=== PATIENT | female | born 1965 | race Caucasian/White ===

== ENCOUNTER 2018-03-02 16:19 | Inpatient (IN) | payer MEDICARE, OTHER ==
[~2018-03-02] VITALS: Ht 149.8 cm; Wt 33.6 kg
[2018-03-02 16:29] VITALS: BP 95/71
[2018-03-02 17:04] LABS: BILIRUBIN NEGATIVE (NEGATIVE); BLOOD NEGATIVE (NEGATIVE); CLARITY CLEAR (CLEAR); COLOR YELLOW (YELLOW); GLUCOSE NEGATIVE (NEGATIVE); KETONE NEGATIVE (NEGATIVE); LEUKO ESTERASE 1+ (NEGATIVE); NITRITE NEGATIVE (NEGATIVE); UROBILINOGEN 0.2 E.U./dl (0.2-1.0)
[2018-03-02 17:09] LABS: BASO % 0.2 % (0.0-1.0); EOS % 0.3 % (1.0-4.0); HEMATOCRIT 42.2 % (37.0-47.0); HEMOGLOBIN 13.5 g/dl (12.0-16.0); LYMPH # 1.9 10*3/uL (1.3-4.4); LYMPH % 17.2 % (27.0-41.0); MEAN CELL VOLUME 94.2 fl (81.0-99.0); MEAN CORPUSCULAR HGB 30.1 pg (27.0-31.0); MEAN PLATELET VOLUME 10.6 fl (9.6-12.3); MONO # 0.7 10*3/uL (0.1-1.0); MONO % 6.2 % (3.0-9.0); NEUT # 8.5 10*3/uL (2.3-7.9); NEUT % 75.8 % (47.0-73.0); PLATELET COUNT AUTOMATED 220 10*3/uL (130-400); RED BLOOD COUNT 4.48 10*6/uL (4.10-5.10); RED CELL DISTRI WIDTH 14.8 % (0-14.5); WHITE BLOOD COUNT 11.3 10*3/uL (4.8-10.8)
[2018-03-02 17:12] LABS: URINE AMPHETAMINES < 1000 (1000ng/ml); URINE BARBITURATES < 200 (200ng/ml); URINE BENZODIAZEPINES < 200 (200ng/ml); URINE CANNABINOIDS (THC) < 50 (50ng/ml); URINE COCAINE < 300 (300ng/ml); URINE METHADONE < 300 (300ng/ml); URINE OPIATES < 300 (300ng/ml)
[2018-03-02 17:16] LABS: URINE PHENCYCLIDINE < 25 (25ng/ml)
[2018-03-02 17:20] LABS: BACTERIA TRACE; EPITHELIAL CELLS TNTC; RBC 0-2 rbc/hpf (0-2)
[2018-03-02 17:28] LABS: ACETAMINOPHEN (TYLENOL) < 2.0 ug/ml (10-30); ALBUMIN 3.5 gm/dl (3.1-4.5); ALKALINE PHOSPHATASE 94 U/L (45-117); BUN 6 mg/dl (7-24); CHLORIDE 101 mmol/L (98-107); CREATININE 0.57 mg/dL (0.55-1.02); ETHYL ALCOHOL < 3.0 mg/dl (<3); POTASSIUM 4.1 mmol/L (3.5-5.1); SGOT/AST 20 IU/L (3-35); SGPT/ALT 22 U/L (12-78); SODIUM 139 mmol/L (136-145); TOTAL PROTEIN 7.4 gm/dL (6.4-8.2)
[2018-03-02 17:30] VITALS: BP 100/75
[2018-03-02 18:30] VITALS: BP 96/74
[2018-03-02] MEDS ORDERED: LYRICA150 M1 PO (18:44)
[2018-03-02] MEDS ORDERED: VISTARIL50 MG PO (18:45)
[2018-03-02] MEDS ORDERED: PROAIR HFA8.5 GM INH (18:46)
[2018-03-02] MEDS ORDERED: ZOLOFT100 MG PO (18:46)
[2018-03-02] MEDS ORDERED: DUONEB 3 MG/3 ML3 M1 INH (18:47)
[2018-03-02] MEDS ORDERED: OMEPRAZOLE40 MG PO (18:47)
[2018-03-02] MEDS ORDERED: DELTASONE2.5 MG PO (18:48)
[2018-03-02] MEDS ORDERED: DEPAKOTE ER500 MG PO (18:50)
[2018-03-02] MEDS ORDERED: BACLOFEN20 M1 PO (18:52)
[2018-03-02 20:00] VITALS: BP 139/82
[2018-03-03 00:19] VITALS: BP 148/87
[2018-03-03 08:00] VITALS: BP 186/90
[2018-03-03 12:00] VITALS: BP 180/90
== END 2018-03-03 17:08 | disposition short-term general hospital (02) | DRG 897 ==
LOC: ED 16:19 → 4E 17:48 → EDHOLD 17:48 → 4E 18:23
PROVIDERS: Nurse Practitioner Family
DX: F11.23 Opioid dependence with withdrawal (principal); Q25.3 Supravalvular aortic stenosis; C50.919 Malignant neoplasm of unspecified site of unspecified female breast; F33.9 Major depressive disorder, recurrent, unspecified; K50.919 Crohn's disease, unspecified, with unspecified complications; D72.829 Elevated white blood cell count, unspecified; N39.0 Urinary tract infection, site not specified; F41.1 Generalized anxiety disorder; E78.5 Hyperlipidemia, unspecified; E16.2 Hypoglycemia, unspecified; L93.0 Discoid lupus erythematosus; K57.30 Diverticulosis of large intestine without perforation or abscess without bleeding; K44.9 Diaphragmatic hernia without obstruction or gangrene; R91.1 Solitary pulmonary nodule; I10 Essential (primary) hypertension; J44.9 Chronic obstructive pulmonary disease, unspecified; G40.909 Epilepsy, unspecified, not intractable, without status epilepticus; Z71.6 Tobacco abuse counseling; Z72.0 Tobacco use; Z88.8 Allergy status to other drugs, medicaments and biological substances; Z90.49 Acquired absence of other specified parts of digestive tract; Z98.1 Arthrodesis status; Z82.5 Family history of asthma and other chronic lower respiratory diseases; Z79.52 Long term (current) use of systemic steroids; Z79.899 Other long term (current) drug therapy

== ENCOUNTER 2018-03-29 23:08 | Inpatient (IN) | payer MEDICARE, OTHER ==
[~2018-03-29] VITALS: Ht 149.8 cm; Wt 32.7 kg
--- NOTE | ~2018-03-29 | PR ---
[place], [place] PROGRESS NOTE NAME: MEHRAN FERNANDEZ UNIT #: [id number] ROOM: 523 DOCTOR: MEET COHN MD BIRTHDATE: [birth year] DOS: 04/02/2018 SUBJECTIVE: The patient has been still noted sleepiness and drowsiness. Not able to give any history. Has not noted any respiratory distress. Continue the detox protocol for the dependence on the illicit drugs as heroin. He has not been noted any hemodynamic instability. REVIEW OF SYSTEMS: Cannot be completed. OBJECTIVE: VITAL SIGNS: Normal temperature, respiratory rate 16-18, heart rate 58-90, blood pressure 110/64-112/53. The intake of patient 2.690 liter, output 1500 mL. HEENT: Limited exam was noted as normal for the patient at this time. Head was atraumatic. Eyes nonicterus. CARDIOVASCULAR: S1, S2 audible. LUNGS: Noted moderate reduction in breath sounds bilaterally. ABDOMEN: Flat, soft, nontender. Bowel sounds present. EXTREMITIES: Without any acute edema. MUSCULOSKELETAL: Without any deformity. SKIN: No lesions or rashes. GENITOURINARY: Still noted with drowsiness. The patient is sleeping, but there were no focal deficits. LABORATORY DATA: The patient's CBC today was noted as normal. BMP this morning noted as normal BUN and creatinine. Sodium 146, mildly elevated potassium, mildly decreased 3.4. The prealbumin level noted at 14. IMPRESSION: 1. The patient with protein calorie malnutrition. 2. The patient with heroin dependence as well. Currently getting detoxification. 3. Mild electrolyte imbalance. 4. Nodule for patient in the left upper lobe is suspicious for malignancy. 5. History of breast cancer, still not sure, further inquiry with family members, but the patient had been provided history about that. Other supportive therapy, plan and management, continue usual treatment, other care, plan of therapies. [place], [place] PROGRESS NOTE NAME: MEHRAN FERNANDEZ UNIT #: [id number] ROOM: 523 DOCTOR: MEET COHN MD BIRTHDATE: [birth year] MEET SHIELDS MD CM:PNTRANS [id number] MEET JUAREZ MD 04/05/18 0927 interface
--- NOTE | ~2018-03-29 | CON ---
[place], [place] REPORT OF CONSULTATION NAME: MEHRAN FERNANDEZ UNIT #: [id number] ROOM: [facility] DOCTOR: MU WEST MD BIRTHDATE: [birth year] DOS: 03/31/2018 REASON FOR CONSULTATION: History of aortic narrowing, malignant hypertension. HISTORY OF PRESENT ILLNESS: The patient is a 52-year-old woman who has a long history of narcotic abuse. She presented to the Emergency Room with nausea and abdominal pain for detoxification from opiates through the [facility]. She states that she has been snorting heroin for over a year and a half. She had been previously followed with pain management for 15 years and was on Opana. She told her admitting physicians that when the pain clinic stopped providing her with the Opana, she began to buy heroin off the street. The patient was hospitalized at [facility], 03/02/2018, for inpatient detoxification through the [facility]. She developed severe abdominal pain and was sent to [facility] after a CAT scan of the abdomen indicated severe narrowing of the abdominal aorta. At the [facility], it was felt that her abdominal pain was due to diverticulitis. A CT angiogram of the abdominal aorta and subsequent examinations by Vascular Surgery indicated that the patient did have normal flow to the lower extremities and that no indication for revascularization was present. In addition, the CT angiogram showed that her superior mesenteric artery was patent. Her inferior mesenteric artery had atherosclerosis, but was patent. The renal arteries had mild atherosclerosis, but were patent and there was no evidence for mesenteric ischemia or renovascular hypertension. The patient is currently lying in her bed in a position. She is moaning, moving constantly, and will not answer questions. Much of the history is obtained from old records. PAST MEDICAL HISTORY: Includes: 1. Bipolar disorder. 2. Cigarette abuse with chronic obstructive pulmonary disease. 3. Crohn's disease. 4. Diverticulosis with diverticulitis. 5. Generalized anxiety disorder. 6. Hiatal hernia. 7. History of breast cancer. 8. History of endometriosis. 9. Hyperlipidemia. 10. Hypertension. 11. Lung nodule. 12. Major depressive disorder. 13. Possible stenosis of the aorta. 14. Vascular Surgery evaluation, [facility] in 02/2018 indicated that the patient had no evidence for hemodynamically significant stenosis of the distal abdominal aorta. There was also no evidence for mesenteric ischemia. SURGICAL HISTORY: Includes history of appendectomy, cholecystectomy, breast [place], [place] REPORT OF CONSULTATION NAME: MEHRAN FERNANDEZ UNIT #: [id number] ROOM: [facility] DOCTOR: MU WEST MD BIRTHDATE: [birth year] lumpectomy, neck surgery with cervical fusion and laparoscopic surgery for endometriosis. REVIEW OF SYSTEMS: Impossible at this time as the patient either cannot or will not answer any questions. As noted, she was lying in a position, shivering. MEDICATIONS PRIOR TO ADMISSION: Albuterol 2 puffs q.i.d. DuoNeb 3 mL by nebulizer q.4h., Baclofen 20 mg t.i.d., Depakote ER 500 mg b.i.d., hydroxyzine 50 mg q.6. hours, omeprazole 40 mg daily, prednisone 2.5 mg daily, Lyrica 150 mg b.i.d., and sertraline 100 mg daily. ALLERGIES: The patient lists allergies to nonsteroidal anti-inflammatory drugs, which cause hives, nausea and tongue swelling. SOCIAL HISTORY: The patient does not consume alcohol. She does smoke cigarettes and she does utilize illicit drugs including heroin. PHYSICAL EXAMINATION: GENERAL: The patient is a cachectic-appearing white female who is awake, but does not respond to questions. VITAL SIGNS: Pulse is 100 and regular, blood pressure is 118/81. She weighs 32.6 kg and has a body mass index of 14.6. HEENT: Normocephalic and atraumatic. Extraocular muscles are intact. Sclerae are clear. The oral mucosa is moist. Tongue is midline. NECK: Supple. She has no jugular distention. Carotids are full. RESPIRATORY: Respirations are unlabored. Her chest is clear to auscultation and percussion. CARDIOVASCULAR: Her heart has a regular rhythm with a fourth heart sound, but no third heart sound or murmur. ABDOMEN: Soft and hypoactive. EXTREMITIES: Showed no edema. Peripheral pulses were palpable in the feet and her feet were warm to touch. LABORATORY DATA: Her electrocardiogram showed sinus tachycardia with biatrial enlargement and left ventricular hypertrophy. IMPRESSION: 1. History of long-term and ongoing narcotic abuse. 2. Opiate withdrawal. 3. Systemic inflammatory response syndrome. 4. Tachycardia. 5. Probable severe malnutrition. 6. History of tobacco abuse. 7. Hypertension. 8. History of possible peripheral vascular disease, not confirmed on recent evaluation by Vascular Surgery at [facility]. PLAN: I believe that the patient's hypertension on admission was probably due to drug withdrawal, anxiety, stress, etc. She probably does have a history of [place], [place] REPORT OF CONSULTATION NAME: MEHRAN FERNANDEZ UNIT #: [id number] ROOM: [facility] DOCTOR: MU WEST MD BIRTHDATE: [birth year] long-term hypertension, but this should be managed utilizing normal step care. In her particular situation, management with clonidine may be particularly appropriate since this may help with her withdrawal symptoms as well. As noted above, the patient did have a Vascular Surgery evaluation while she was hospitalized at the [facility] one month ago. This did not show any evidence for significant ischemia of her abdominal viscera or her lower extremities. Risk factor modification is all that is appropriate for her vascular disease at this time. We will see the patient intermittently with her other physicians and be available as needed. I thank the hospitalist physicians for asking our advice regarding her care. MU WEST MD CM:CONSTR:REPORT OF CONSULTATION 1721 03/31/189 interface
--- NOTE | ~2018-03-29 | CON ---
[place], [place] REPORT OF CONSULTATION NAME: MEHRAN FERNANDEZ UNIT #: [id number] ROOM: [facility] DOCTOR: MEET COHN MD BIRTHDATE: [birth year] DOS: 04/01/2018 PULMONARY CONSULTATION, EVALUATION AND MANAGEMENT CONSULTATION REQUESTED BY: Hospitalist services. REASON FOR CONSULTATION: For assessment of the nodule in the left upper lobe. HISTORY OF PRESENT ILLNESS: The history of the patient contained documented mostly is actual review of the medical record by the other physician at this time. The patient has been noted intermittently drowsy and sleepy and not able to give me accurate history. This is a 52-year-old white female patient who was admitted to the hospital under the hospitalist service as a [facility]. The patient has been noted with a narcotic overdose for this patient and abuse in the form of the heroin. The patient stated that she has been snorting the heroin. She has been admitted to the hospital for detoxification. The patient presented to the hospice also reported symptoms of nausea and abdominal pain. The patient has been currently staying at the bed noted with intermittent sleepiness of the patient at the time of the assessment. Further review of systems could not be obtained. REVIEW OF SYSTEMS: Certainly cannot be performed for this patient at this time because of current overall medical status. PAST MEDICAL HISTORY: 1. The patient was reported as history of bipolar disorder. 2. Nicotine dependence. 3. Chronic obstructive pulmonary disease. 4. Crohn's disease. 5. Diverticulosis and diverticulitis. 6. General anxiety disorder. 7. Hiatal hernia. 8. Breast cancer. Again, details unknown. 9. History of endometriosis. 10. Hyperlipidemia. 11. Hypertension. 12. Major depressive disorder. 13. Possible stenosis of aorta was also reported. 14. Peripheral arterial disease for the patient was also reported including for the major vessels for the patient. PAST SURGICAL HISTORY: Reported as: 1. Cholecystectomy. 2. Appendectomy. 3. Cervical fusion. 4. Cholecystectomy. SOCIAL HISTORY: The patient reported , has 1 child, lives were at home. [place], [place] REPORT OF CONSULTATION NAME: MEHRAN FERNANDEZ UNIT #: [id number] ROOM: [facility] DOCTOR: MEET COHN MD BIRTHDATE: [birth year] History of chronic illicit drug use was noted in the form of the heroin. Tobacco use was reported for the patient since age of [age] years old at least half a pack of cigarettes per day, long time. There was no history of alcohol use reported. FAMILY HISTORY: Reported father at 57-year-old with complication of COPD, history about the mom was unknown. HOME MEDICATIONS: Listed use of ProAir HFA inhaler, baclofen, Depakote, Vistaril, DuoNeb, omeprazole, prednisone 2.5 mg, Lyrica, and Zoloft. ALLERGIES: THE PATIENT'S DRUG USE REPORTED ALLERGY TO THE NONSTEROIDAL ANTI-INFLAMMATORY MEDICATION CAUSING ANGIOEDEMA. PHYSICAL EXAMINATION: GENERAL: This is a 52-year-old female who has been currently lying in the bed, appeared to be somewhat sleepy intermittently, but there were no respiratory distress at the present time. VITAL SIGNS: Height was recorded 4 feet 11 inches, weight of 72 pounds with a BMI only 14.7. Vital signs for the patient, which has been noted showed the temperature noted normal, respiratory rate is 16-17, heart rate of 104-123, previous sinus tachycardia, blood pressure 117/77-128/80. HEENT: Examination shows head was atraumatic. Eyes: Nonicterus. NECK: Supple. CARDIOVASCULAR: S1, S2 audible. LUNGS: The patient was noted with [id number] decreased breath sounds bilaterally without any crackles. ABDOMEN: Flat, soft, nontender. EXTREMITIES: Without any acute edema. MUSCULOSKELETAL: Without acute deformities. CENTRAL NERVOUS SYSTEM: Could not be examined for the patient at this time. SKIN: Visible skin. No lesions or rashes. MUSCULOSKELETAL: Noted without any acute deformities. LABORATORY DATA: CBC on 03/29/2018 was noted as normal CBC. Salicylate level noted less than 1.7 on admission on 03/29/2018. On 03/29/2018, CMP of the patient noted normal BUN and creatinine. The urine drug screen for the patient on admission noted positive for benzodiazepines and opiates. The PT/INR for the patient on 03/30/2018 was normal. Ammonia level 17 on 03/31/2018. Arterial blood gas for the patient on 03/31/2018, 2 liters, pH of 7.39, pCO2 of 44, pO2 of 99.2. CT of the head for the patient that was done on 03/31/2018 was noted without any acute intracranial abnormalities. Chest x-ray of the patient 1 view, which was done for the patient 03/29/2018 shows changes of COPD without any acute pulmonary infiltration. The patient had a CTA of the chest that was done yesterday was reviewed, showed changes of centrilobular emphysema in the upper portion of the lung 1.5 x 1.1 cm nodule for the patient noted spiculated in the left ____. The arterial blood gas for this patient was done again yesterday, pH of 7.45, pCO2 of 37, pO2 65 on room air. CBC of this morning remains normal. CMP this morning, normal BUN and creatinine. [place], [place] REPORT OF CONSULTATION NAME: MEHRAN FERNANDEZ UNIT #: [id number] ROOM: [facility] DOCTOR: MEET COHN MD BIRTHDATE: [birth year] IMPRESSION: 1. The patient will be admitted to the hospital with history reported for the breast cancer, lumpectomy reported in the history by records not having further documentation assessment for that. Currently noted with a nodule in the right upper lobe with a history of chronic tobacco use and chronic obstructive pulmonary disease, suspicious highly for a primary lung malignancy, metastatic disease certainly to be excluded. 2. The patient with severe cachexia, most likely related to chronic illicit drug use for the patient with underlying chronic obstructive pulmonary disease and other factors. 3. Chronic nicotine dependence. 4. History of chronic illicit drug use of the patient in the form of the heroin. PLAN OF MANAGEMENT: At this time, the patient to be treated for the detoxification. Upon discharge, she will require PET scan and then biopsy of the left upper lung nodule to consider out malignancy. Further workup of the patient's COPD should be done as an outpatient for the appropriate long-term management. Tobacco cessation will be recommended of this patient. At this time, no meaningful discussion could be done in the patient because of her current ongoing mental status changes of the patient and other issues. Supportive care. Nutrition support for the cachexia. Ordered the prealbumin level of the patient to assess the underlying nutritional status. Usual care, other supportive therapy, plan of management and care plan. Thanks for allowing me to participate in the care of this patient. MEET SHIELDS MD CM:CONSTR:REPORT OF CONSULTATION 1213 04/01/18 1405 interface
--- NOTE | ~2018-03-29 | PR ---
[place], [place] PROGRESS NOTE NAME: MEHRAN FERNANDEZ UNIT #: [id number] ROOM: 523 DOCTOR: CORNELIUS JUAREZ MD,MEET BIRTHDATE: [birth year] DOS: 04/03/2018 PULMONARY PROGRESS NOTE SUBJECTIVE: The patient noted comfortable at this time, resting in bed, noted fully awake and alert. The patient is able to converse, understand the conversation effectively. The patient denied any history of cancer of the breast as a biopsy done of the left breast that was noted benign at [facility] many years ago. She does not know any pulmonary nodules, which are known in the lungs previously as well. She lives in [place], [place] and came in for detoxification for the [facility]. The patient stated that she had been managed for several pain medications including the Opana, Percocet for the chronic pain was described as a part of the body including intravertebral areas. The patient would like to be detoxed to get rid of the narcotic medications. Denies symptoms of chest pain, nausea, vomiting. Denies symptoms of abdominal pain, hematemesis, melena, or hematochezia. Denies symptoms of recurrent fever or chills. General weakness and fatigue was noted. Her appetite was noted as fair. PAST MEDICAL HISTORY, FAMILY HISTORY, SOCIAL AND SURGICAL HISTORY: Reviewed for the patient again and noted unchanged except what is already stated in history of present illness as there was no history of breast cancer. PHYSICAL EXAMINATION: VITAL SIGNS: For the patient, which were recorded this morning showed normal temperature, respiratory rate 16, heart rate 67, blood pressure 127/83-120/88. The pulse oxygen saturation noted at 40% oxygen with the BiPAP and the oxygen supplementation nasal cannula 98% saturation this morning at rest. HEENT: Shows head was atraumatic. Eyes nonicterus. NECK: Supple. CARDIOVASCULAR: S1, S2 audible. LUNGS: Noted [id number] decreased breath sounds. There was no wheezing or crackles. ABDOMEN: Soft, flat, nontender, bowel sounds present. EXTREMITIES: Loss of muscle mass. VISIBLE SKIN: No lesions or rashes. CENTRAL NERVOUS SYSTEM: Noted intact. LABORATORY DATA: The CMP this morning shows glucose 105, BUN 8, creatinine 0.42. Total protein 6.0. Albumin 2.8. CBC, WBC count were normal. All the other CBC was noted as normal. IMPRESSION: 1. The patient who has been currently noted with a drug withdrawal for detoxification, which has been continued with use of the heroin used by the patient for the medical and chronic pain and narcotic medication dependency. 2. Highly suspicious nodule of left upper lung with a strong possibility of primary lung malignancy. 3. Severe chronic protein-calorie malnutrition status as well. 4. History of dependence on the illicit drugs. [place], [place] PROGRESS NOTE NAME: MEHRAN FERNANDEZ UNIT #: [id number] ROOM: 523 DOCTOR: CORNELIUS JUAREZ MD,MEET BIRTHDATE: [birth year] 5. Chronic nicotine use. The patient also noted smoking cigarettes 1 pack a day or more. 6. Moderate protein-calorie malnutrition. PLAN OF MANAGEMENT: The patient will be ordered nutrition supplements as Ensure 1 can 4 times a day. Continuation of the bronchodilator with oxygen supplementation as in progress. Continue detoxification program for the use of heroin dependency. Continuation of other previous therapy, plan of management , care plan, usual treatment, other supportive plan of management. The detailed discussion was done for the patient about 50 minutes more for further assessment, which will be needed to exclude malignancy and further medical management of the left upper lobe, clearly understood by the patient. She was asked to be followed up by trading floor operator in the local area since they live far away, but she likes to come to my office for further assessment if she does make an appointment and followup, which will be difficult because of transportation and travel. I will be more than happy to assist her for that. Continue in the meantime, other supportive therapy, plan of management, care plan, usual treatment. MEET SHIELDS MD CM:PNJOSH [id number] MEET JUAREZ MD 04/03/18 0292 interface
--- NOTE | ~2018-03-29 | PR ---
[place], [place] PROGRESS NOTE NAME: MEHRAN FERNANDEZ WADENA CLINICT #: [id number] UNIT #: [id number] ROOM: [facility] DOCTOR: MU WEST MD BIRTHDATE: [birth year] DOS: 04/01/2018 CARDIOLOGY PROGRESS NOTE SUBJECTIVE: The patient was seen at her bedside in the Intensive Care Unit today on 04/01/2018 for reassessment of aortic vascular disease and hypertension. She is a 52-year-old woman with a history of narcotic abuse who presented to the Emergency Room with nausea and abdominal pain with a request that she be detoxified from opiates through the [facility]. The patient was recently hospitalized at the [facility] in late 02/2018 for inpatient detoxification and severe abdominal pain with nausea and vomiting. A CAT scan of her abdomen suggested near occlusion of her distal abdominal aorta and therefore, she was sent to [facility] for a vascular evaluation. Repeat CT angiography of her lower abdomen and pelvis showed good flow through the distal abdominal aorta, even though she does have plaque disease. She was evaluated by a vascular surgeon who noted that she had an excellent pedal pulses and good distal flow to the legs. They recommended no surgical approaches to her findings. This morning, the patient is much more alert than she was last night when I saw her. She complains of fatigue, but denies dyspnea or chest pain. PHYSICAL EXAMINATION: VITAL SIGNS: Today, her pulse is 100 and regular, blood pressure is 138/80. Overnight, it had been as high as 192/102, but generally is much lower. She has temperature of 99.2. She weighs 32.6 kg and has a body mass index of 14.6. NECK: Supple. She has no jugular distention. Carotids are full without bruits. LUNGS: Respirations were unlabored. She has decreased breath sounds at the bases, but no wheezes or rales. HEART: Has a regular rhythm with a fourth heart sound, but no third heart sound or murmur. ABDOMEN: Soft. EXTREMITIES: Showed no edema. Peripheral pulses are very easily palpated in the feet bilaterally. DIAGNOSTIC DATA: She did have an echocardiogram last evening, which was a technically difficult study because of the patient's poor cooperation; however, the left ventricular size and systolic function were normal. She had mild concentric left ventricular hypertrophy and stage 1 diastolic relaxation abnormalities. Ejection fraction was 60%. The right ventricle appeared enlarged, but could not be accurately quantified. She had no obvious abnormalities of valve function. LABORATORY DATA: Hemoglobin today is 14.0, white count 7900, platelet count 253,000. Sodium 142, potassium 3.8, chloride 107, CO2 of 28, BUN 14, and creatinine 0.49. Troponin levels have been minimally elevated from 0.047 to 0.096. IMPRESSION: [place], [place] PROGRESS NOTE NAME: MEHRAN FERNANDEZ UNIT #: [id number] ROOM: [facility] DOCTOR: MU WEST MD BIRTHDATE: [birth year] 1. History of long-term and ongoing narcotic abuse. 2. Opiate withdrawal. 3. Systemic inflammatory response syndrome. 4. Tachycardia. 5. Probable severe and malnutrition. 6. History of tobacco abuse. 7. Hypertension. 8. History of reported peripheral vascular disease. This was not confirmed on a recent evaluation by Vascular Surgery at the [facility] nor on my examination today. 9. Mild elevation in troponin. I believe that the patient's blood pressure is related to her drug withdrawal, although she may have a degree of underlying essential hypertension as well. I do not think that she has renovascular hypertension nor do I think that she has significant peripheral vascular disease. Her management should be risk factor modification only and appropriate management of her blood pressure. In her case, clonidine is probably an ideal agent since this may help with her withdrawal, tachycardia, etc. As regard to the elevation in troponin, I believe that this is due to demand ischemia and does not represent an acute coronary syndrome. There are no other plans for cardiac assessment at this time and we will sign off. Please contact us if we could be of any further assistance. MU WEST MD CM:PNTRANS 2 [phone] MU WEST MD 04/02/18 415 interface
--- NOTE | ~2018-03-29 | PR ---
[place], [place] PROGRESS NOTE NAME: MEHRAN FERNANDEZ UNIT #: [id number] ROOM: 523 DOCTOR: CORNELIUS JUAREZ MD,MEET BIRTHDATE: [birth year] DOS: 04/04/2018 PULMONARY PROGRESS NOTE SUBJECTIVE: The patient has been transferred to telemetry floor from the Intensive Care Unit. Noted fully awake and alert. Denies any pain. Doing very well. Denies symptoms of chest pain, coughing, or sputum expectoration. OBJECTIVE: VITAL SIGNS: Normal temperature, respiratory rate 18, heart rate 91, blood pressure 136/80. The pulse ox saturation on 2 liters nasal cannula 92% saturation. HEENT: Examination shows head was atraumatic. Eyes nonicterus. NECK: Supple. CARDIOVASCULAR: S1, S2 is audible. LUNGS: Without any wheeze or crackles. ABDOMEN: Soft, nontender. Bowel sounds present. EXTREMITIES: Without any acute edema. IMPRESSION: 1. The patient has been currently noted with detoxification from dependence on the heroin, doing very well. 2. Left upper lobe pulmonary nodule. Requires further assessment. Possibility of malignancy would be considered. PLAN OF MANAGEMENT: No changes in the plan of management at this time. Continue current plan of management as in progress. Usual care. MEET SHIELDS MD CM:KYRA [id number] MEET JUAREZ MD 04/04/18 1405 interface
[~2018-03-29 23:08] MED LIST: BACLOFEN20 M1 PO; DELTASONE2.5 MG PO; DEPAKOTE ER500 MG PO; DUONEB 3 MG/3 ML3 M1 INH; LYRICA150 M1 PO; OMEPRAZOLE40 MG PO; PROAIR HFA8.5 GM INH; VISTARIL50 MG PO; ZOLOFT100 MG PO
[2018-03-29 23:17] VITALS: BP 126/67
[2018-03-29 23:37] LABS: BASO # 0.1 10*3/uL (0.0-0.1); BASO % 0.7 % (0.0-1.0); EOS # 0.4 10*3/uL (0.0-0.4); EOS % 3.7 % (1.0-4.0); HEMATOCRIT 45.5 % (37.0-47.0); LYMPH # 2.4 10*3/uL (1.3-4.4); MEAN CELL VOLUME 92.9 fl (81.0-99.0); MEAN CORPUSCULAR HGB 28.6 pg (27.0-31.0); MEAN CORPUSCULAR HGB CONC 30.8 g/dl (33.0-37.0); MEAN PLATELET VOLUME 11.5 fl (9.6-12.3); MONO # 0.7 10*3/uL (0.1-1.0); NEUT # 5.8 10*3/uL (2.3-7.9); NEUT % 62.3 % (47.0-73.0); PLATELET COUNT AUTOMATED 275 10*3/uL (130-400); RED CELL DISTRI WIDTH 15.3 % (0-14.5); WHITE BLOOD COUNT 9.4 10*3/uL (4.8-10.8)
[2018-03-29 23:39] LABS: ALBUMIN 3.3 gm/dl (3.1-4.5); ALKALINE PHOSPHATASE 123 U/L (45-117); BUN 5 mg/dl (7-24); CHLORIDE 104 mmol/L (98-107); CREATININE 0.66 mg/dL (0.55-1.02); POTASSIUM 3.8 mmol/L (3.5-5.1); SGOT/AST 17 IU/L (3-35); SGPT/ALT 31 U/L (12-78); SODIUM 142 mmol/L (136-145); TOTAL PROTEIN 7.2 gm/dL (6.4-8.2)
[2018-03-29 23:42] LABS: ACETAMINOPHEN (TYLENOL) < 2.0 ug/ml (10-30); ETHYL ALCOHOL < 3.0 mg/dl (<3)
[2018-03-29 23:46] LABS: BILIRUBIN NEGATIVE (NEGATIVE); BLOOD NEGATIVE (NEGATIVE); CLARITY SL CLOUDY (CLEAR); COLOR YELLOW (YELLOW); GLUCOSE NEGATIVE (NEGATIVE); KETONE NEGATIVE (NEGATIVE); LEUKO ESTERASE NEGATIVE (NEGATIVE); NITRITE NEGATIVE (NEGATIVE); PH 5.5 (5.0-9.0); SPECIFIC GRAVITY >= 1.030 (1.005-1.030)
[2018-03-29 23:48] LABS: THYROID STIM HORMONE (HS) 0.325 uIU/ml (0.358-4.75)
[2018-03-29 23:54] LABS: URINE AMPHETAMINES < 1000 (1000ng/ml); URINE BARBITURATES < 200 (200ng/ml); URINE BENZODIAZEPINES > 200 (200ng/ml); URINE CANNABINOIDS (THC) < 50 (50ng/ml); URINE COCAINE < 300 (300ng/ml); URINE METHADONE < 300 (300ng/ml); URINE OPIATES > 300 (300ng/ml)
[2018-03-29 23:56] LABS: URINE PHENCYCLIDINE < 25 (25ng/ml)
[2018-03-29 23:57] LABS: RBC 0-2 rbc/hpf (0-2); WBC 0-2 wbc/hpf (0-5)
[2018-03-29 23:58] LABS: BACTERIA 2+; MUCOUS TRACE
[2018-03-30] VITALS (11 sets, daily range): BP systolic 111–214; BP diastolic 55–122
[2018-03-31] VITALS (8 sets, daily range): BP systolic 116–213; BP diastolic 77–104
[2018-03-31 03:58] LABS: ABG BASE EXCESS 1.5 mmol/L (-2.0-2.0); ABG HCO3 26.5 mmol/l (22-26); ABG O2 SATURATION 97.3 % (95-97); ARTERIAL BLOOD GAS PCO2 44.6 mmHg (35-45); ARTERIAL BLOOD GAS PH 7.39 (7.35-7.45); ARTERIAL BLOOD GAS PO2 99.2 mmHg (80-90)
[2018-03-31 05:08] LABS: BUN 9 mg/dl (7-24); CHLORIDE 100 mmol/L (98-107); CREATININE 0.57 mg/dL (0.55-1.02); POTASSIUM 4.3 mmol/L (3.5-5.1); SODIUM 137 mmol/L (136-145)
[2018-03-31 06:02] LABS: BASO # 0.1 10*3/uL (0.0-0.1); BASO % 0.4 % (0.0-1.0); HEMATOCRIT 47.8 % (37.0-47.0); HEMOGLOBIN 15.3 g/dl (12.0-16.0); LYMPH % 15.9 % (27.0-41.0); MEAN CORPUSCULAR HGB 28.5 pg (27.0-31.0); MEAN PLATELET VOLUME 12.3 fl (9.6-12.3); MONO # 0.7 10*3/uL (0.1-1.0); MONO % 5.5 % (3.0-9.0); NEUT # 9.9 10*3/uL (2.3-7.9); NEUT % 77.9 % (47.0-73.0); PLATELET COUNT AUTOMATED 277 10*3/uL (130-400); RED BLOOD COUNT 5.36 10*6/uL (4.10-5.10); RED CELL DISTRI WIDTH 15.4 % (0-14.5); WHITE BLOOD COUNT 12.6 10*3/uL (4.8-10.8)
[2018-03-31 06:12] LABS: MEAN CELL VOLUME 89.2 fl (81.0-99.0)
[2018-03-31 13:08] LABS: ABG BASE EXCESS 2.7 mmol/L (-2.0-2.0); ABG HCO3 26.1 mmol/l (22-26); ABG O2 SATURATION 93.3 % (95-97); ARTERIAL BLOOD GAS PCO2 37.4 mmHg (35-45); ARTERIAL BLOOD GAS PH 7.458 (7.35-7.45); ARTERIAL BLOOD GAS PO2 65.2 mmHg (80-90)
[2018-04-01] VITALS (8 sets, daily range): BP systolic 98–192; BP diastolic 49–102
[2018-04-01 05:12] LABS: ALBUMIN 3.1 gm/dl (3.1-4.5); ALKALINE PHOSPHATASE 102 U/L (45-117); BUN 14 mg/dl (7-24); CHLORIDE 107 mmol/L (98-107); CREATININE 0.49 mg/dL (0.55-1.02); PHOSPHOROUS 3.6 mg/dL (2.5-4.9); POTASSIUM 3.8 mmol/L (3.5-5.1); SGOT/AST 8 IU/L (3-35); SGPT/ALT 20 U/L (12-78); SODIUM 143 mmol/L (136-145); TOTAL PROTEIN 6.7 gm/dL (6.4-8.2)
[2018-04-01 06:17] LABS: BASO % 0.5 % (0.0-1.0); EOS % 0.1 % (1.0-4.0); HEMATOCRIT 45.1 % (37.0-47.0); LYMPH # 1.7 10*3/uL (1.3-4.4); MEAN CELL VOLUME 91.3 fl (81.0-99.0); MEAN CORPUSCULAR HGB 28.3 pg (27.0-31.0); MEAN PLATELET VOLUME 12.2 fl (9.6-12.3); MONO # 0.4 10*3/uL (0.1-1.0); MONO % 5.6 % (3.0-9.0); NEUT # 5.7 10*3/uL (2.3-7.9); NEUT % 72.7 % (47.0-73.0); PLATELET COUNT AUTOMATED 253 10*3/uL (130-400); RED BLOOD COUNT 4.94 10*6/uL (4.10-5.10); RED CELL DISTRI WIDTH 15.7 % (0-14.5); WHITE BLOOD COUNT 7.9 10*3/uL (4.8-10.8)
[2018-04-02] VITALS: BP 116/62
[2018-04-02 04:00] VITALS: BP 112/58
[2018-04-02 05:58] LABS: BASO % 0.2 % (0.0-1.0); LYMPH # 0.9 10*3/uL (1.3-4.4); LYMPH % 18.7 % (27.0-41.0); MEAN CELL VOLUME 93.4 fl (81.0-99.0); MEAN CORPUSCULAR HGB 28.5 pg (27.0-31.0); MEAN CORPUSCULAR HGB CONC 30.5 g/dl (33.0-37.0); MEAN PLATELET VOLUME 11.7 fl (9.6-12.3); MONO # 0.1 10*3/uL (0.1-1.0); MONO % 2.7 % (3.0-9.0); NEUT # 3.8 10*3/uL (2.3-7.9); NEUT % 78.2 % (47.0-73.0); RED BLOOD COUNT 4.11 10*6/uL (4.10-5.10); RED CELL DISTRI WIDTH 15.1 % (0-14.5); WHITE BLOOD COUNT 4.9 10*3/uL (4.8-10.8)
[2018-04-02 06:03] LABS: HEMATOCRIT 38.4 % (37.0-47.0); HEMOGLOBIN 11.7 g/dl (12.0-16.0)
[2018-04-02 06:04] LABS: PLATELET COUNT AUTOMATED 174 10*3/uL (130-400)
[2018-04-02 06:08] LABS: BUN 16 mg/dl (7-24); CHLORIDE 111 mmol/L (98-107); CREATININE 0.66 mg/dL (0.55-1.02); PHOSPHOROUS 3.7 mg/dL (2.5-4.9); POTASSIUM 3.4 mmol/L (3.5-5.1); SODIUM 146 mmol/L (136-145)
[2018-04-02 06:13] LABS: PREALBUMIN 14 mg/dl (20-40)
[2018-04-02 08:00] VITALS: BP 110/64
[2018-04-02 12:00] VITALS: BP 90/51
[2018-04-02 15:53] VITALS: BP 174/80
[2018-04-02 20:00] VITALS: BP 180/88
[2018-04-03] VITALS (7 sets, daily range): BP systolic 90–168; BP diastolic 45–86
[2018-04-03 06:06] LABS: HEMATOCRIT 39.6 % (37.0-47.0); HEMOGLOBIN 12.3 g/dl (12.0-16.0); LYMPH # 0.9 10*3/uL (1.3-4.4); LYMPH % 17.7 % (27.0-41.0); MEAN CELL VOLUME 90.4 fl (81.0-99.0); MEAN CORPUSCULAR HGB 28.1 pg (27.0-31.0); MEAN CORPUSCULAR HGB CONC 31.1 g/dl (33.0-37.0); MEAN PLATELET VOLUME 11.9 fl (9.6-12.3); MONO # 0.1 10*3/uL (0.1-1.0); MONO % 1.4 % (3.0-9.0); NEUT # 3.9 10*3/uL (2.3-7.9); NEUT % 80.7 % (47.0-73.0); PLATELET COUNT AUTOMATED 182 10*3/uL (130-400); RED BLOOD COUNT 4.38 10*6/uL (4.10-5.10); RED CELL DISTRI WIDTH 14.9 % (0-14.5); WHITE BLOOD COUNT 4.9 10*3/uL (4.8-10.8)
[2018-04-03 06:31] LABS: ALBUMIN 2.8 gm/dl (3.1-4.5); ALKALINE PHOSPHATASE 79 U/L (45-117); BUN 8 mg/dl (7-24); CHLORIDE 107 mmol/L (98-107); CREATININE 0.42 mg/dL (0.55-1.02); PHOSPHOROUS 3.5 mg/dL (2.5-4.9); POTASSIUM 4.3 mmol/L (3.5-5.1); SGOT/AST 6 IU/L (3-35); SGPT/ALT 17 U/L (12-78); SODIUM 144 mmol/L (136-145)
[2018-04-04] VITALS: BP 100/50
[2018-04-04 08:00] VITALS: BP 136/80
[2018-04-04 12:00] VITALS: BP 141/86
[2018-04-04] MEDS ORDERED: NATURE'S BLEND F1 MG PO (14:10)
[2018-04-04] MEDS ORDERED: NICODERM CQ1 EAC2 T (14:10)
[2018-04-04] MEDS ORDERED: DOXYCYCLINE100 M3 PO (14:10)
[2018-04-04] MEDS ORDERED: NATURE'S BLEND100 M2 PO (14:10)
[2018-04-04] MEDS ORDERED: THERA TABLET400 MCG PO (14:10)
[2018-04-04] MEDS ORDERED: PREDNISONE10 MG PO (14:10)
[2018-04-04] MEDS ORDERED: DULE1ARO INH (14:10)
[2018-04-04] MEDS ORDERED: PREPARATION H1 EAC1 R (14:44)
[2018-04-04] MEDS ORDERED: PROVENTIL HFA6.7 GM INH (15:22)
== END 2018-04-04 15:36 | disposition home or self-care (01) | DRG 189 ==
LOC: ED 23:08 → 4E 03-30 00:22 → ICCU 03-30 00:22 → EDHOLD 03-30 00:22 → 4E 03-30 00:45 → ICCU 03-31 14:24 → 5E 04-03 18:08
PROVIDERS: Emergency Medicine Emergency Medical Services; Internal Medicine; Internal Medicine Critical Care Medicine; Internal Medicine Nephrology
DX: J96.01 Acute respiratory failure with hypoxia (principal); E43 Unspecified severe protein-calorie malnutrition; R65.10 Systemic inflammatory response syndrome (SIRS) of non-infectious origin without acute organ dysfunction; E87.0 Hyperosmolality and hypernatremia; I11.0 Hypertensive heart disease with heart failure; I50.30 Unspecified diastolic (congestive) heart failure; F31.4 Bipolar disorder, current episode depressed, severe, without psychotic features; K50.919 Crohn's disease, unspecified, with unspecified complications; F11.23 Opioid dependence with withdrawal; Z68.1 Body mass index [BMI] 19.9 or less, adult; I16.0 Hypertensive urgency; E87.6 Hypokalemia; E86.0 Dehydration; L93.0 Discoid lupus erythematosus; R00.0 Tachycardia, unspecified; D72.810 Lymphocytopenia; F41.1 Generalized anxiety disorder; E78.5 Hyperlipidemia, unspecified; J44.9 Chronic obstructive pulmonary disease, unspecified; G40.909 Epilepsy, unspecified, not intractable, without status epilepticus; K44.9 Diaphragmatic hernia without obstruction or gangrene; D72.829 Elevated white blood cell count, unspecified; R74.8 Abnormal levels of other serum enzymes; R91.8 Other nonspecific abnormal finding of lung field; K57.90 Diverticulosis of intestine, part unspecified, without perforation or abscess without bleeding; F17.210 Nicotine dependence, cigarettes, uncomplicated; R91.1 Solitary pulmonary nodule; I73.9 Peripheral vascular disease, unspecified; Z71.6 Tobacco abuse counseling; Z88.8 Allergy status to other drugs, medicaments and biological substances; Z79.899 Other long term (current) drug therapy; Z85.3 Personal history of malignant neoplasm of breast; Z87.440 Personal history of urinary (tract) infections; Z90.49 Acquired absence of other specified parts of digestive tract; Z98.1 Arthrodesis status; Z83.6 Family history of other diseases of the respiratory system